=== PATIENT | female | born 1980 | race Caucasian/White ===

== ENCOUNTER 2021-09-16 09:19 | Emergency (ER) | payer BC ==
[~2021-09-16] VITALS: Ht 162.6 cm; Wt 77.3 kg
[~2021-09-16 09:19] MED LIST: ANTIBIOTIC; BENADRYL 50MG C50 MG PO; BUSPAR10 MG PO; CELEXA40 MG PO; FLONASE NASAL S16 GM NS; PRENATAL VITAMI1 TA5 PO; WELLBUTRIN 75MG75 MG PO; ZOFRAN 4MG T4 MG/TAB PO
[2021-09-16 09:36] VITALS: TEMP 97.6
[2021-09-16 09:48] LABS: BASO # 0.1 K/mm3 (0.0-0.2); BASO % 0.5 % (0.0-2.0); EOS # 0.1 K/mm3 (0.0-0.7); EOS % 0.8 % (0-4.0); GRAN # 9.1 K/mm3 (1.4-6.5); GRAN % 80.3 % (42.2-75.2); HEMATOCRIT 42.7 % (37.0-47.0); HEMOGLOBIN 14.2 g/dl (12.5-16.0); LYMPH # 1.5 K/mm3 (1.2-3.4); LYMPH % 13.5 % (20.0-51.0); MEAN CELL VOLUME 92 fl (80.0-100.0); MEAN CORPUSCULAR HEMOGLOBIN 31 pg (27.0-31.0); MEAN CORPUSCULAR HGB CONC 33 g/dl (33.0-37.0); MEAN PLATELET VOLUME 12.9 fl (7.4-10.4); MONO # 0.5 K/mm3 (0.1-0.6); MONO % 4.5 % (1.7-9.3); PLATELET COUNT 200 K/mm3 (130-400); RED BLOOD COUNT 4.66 M/mm3 (4.10-5.30); REDCELL DISTRIBUTION WIDTH-CV 12.4 % (11.5-14.5)
[2021-09-16 10:06] LABS: ALBUMIN 4.4 gm/dL (3.5-5.0); BILIRUBIN,TOTAL 0.3 mg/dL (0.2-1.2); C-REACTIVE PROTEIN 0.3 mg/dL (0.00-0.50); CALCIUM 9.8 mg/dL (8.4-10.2); CREATININE, serum 0.82 mg/dL (0.57-1.11); POTASSIUM 5.5 mmol/L (3.5-4.5); TOTAL PROTEIN 8.3 gm/dL (6.2-8.1)
[2021-09-16 12:20] LABS: COLLECTION METHOD CLEAN CATCH
[2021-09-16 12:51] LABS: MUCOUS Present /lpf; PH 7 (5-8); URINE APPEARANCE Clear; URINE BACTERIA None Seen /hpf; URINE BILIRUBIN Negative (NEGATIVE); URINE BLOOD Negative (NEGATIVE); URINE COLOR Yellow; URINE GLUCOSE Negative (NEGATIVE); URINE KETONE 2+ (NEGATIVE); URINE LEUKOCYTE ESTERASE Negative (NEGATIVE); URINE NITRATE Negative (NEGATIVE); URINE PROTEIN(semi-quant) Negative (NEGATIVE); URINE RBC 0-2 /hpf; URINE UROBILINOGEN Negative (NEGATIVE)
[2021-09-16 14:00] VITALS: BP 111/70; PULSE 56
[2021-09-16] MEDS ORDERED: ZOFRAN ODT4 MG PO (14:01)
[2021-09-16] MEDS ORDERED: NORCO 325 MG-51 TAB PO (14:01)
== END 2021-09-16 14:10 | disposition home or self-care (01) ==
LOC: COL.ER 09:19
PROVIDERS: Emergency Medicine
DX: R10.31 Right lower quadrant pain (principal); R11.2 Nausea with vomiting, unspecified; D72.829 Elevated white blood cell count, unspecified; F41.9 Anxiety disorder, unspecified; F32.A Depression, unspecified; F98.8 Other specified behavioral and emotional disorders with onset usually occurring in childhood and adolescence; Z32.02 Encounter for pregnancy test, result negative; Z79.899 Other long term (current) drug therapy
CPT/HCPCS: J2060; J2405; J2550; J3010; J7030